=== PATIENT | female | born 1990 | race Caucasian/White ===

== ENCOUNTER 2024-07-02 01:16 | Emergency (ER) | payer OTHER, SELFPAY ==
--- NOTE | ~2024-07-02 | XR_ITS ---
EXAMINATION: XR CHEST CLINICAL INFORMATION: Cough, productive for 2 weeks. COMPARISON: None available. TECHNIQUE: 2 views of the chest were obtained. FINDINGS: No consolidation, pleural effusion or pneumothorax. Cardiomediastinal silhouette is normal in size. S-shaped curvature of the thoracic spine. Vascular clips in the right upper quadrant abdomen and likely prior cholecystectomy. XR/XR chest 2V IMPRESSION: No acute airspace disease. Probable scoliosis, thoracic spine. Electronically signed by: Eric Hairston MD 07/02/2024 09:00 AM KIN[facility]
[2024-07-02 01:20] VITALS: BP 134/91; PULSE 92; RESP 18; TEMP 36.6; O2SAT 95; BMI 24.4
[2024-07-02 01:41] LABS: IDNOW Serial# 08D9AD1C; Strep A Nucleic Acid Negative (Negative)
[2024-07-02 02:11] LABS: Influenza A PCR NEGATIVE (Negative); Influenza B PCR NEGATIVE (Negative); Resp Syncy Virus RNA Qual PCR NEGATIVE (Negative); SARS COV2 PCR INHOUSE NEGATIVE (Negative)
[2024-07-02 04:18] VITALS: BP 126/85; PULSE 82; RESP 18; O2SAT 98
--- NOTE | 2024-07-02 07:40 | ED_ITS ---
HPI - URI/Sore Throat General Chief Complaint: Upper Respiratory Symptoms Stated Complaint: Diff breathing Time Seen by Provider: 07/02/24 07:39 Source: patient Mode of arrival: ambulatory Limitations: no limitations History of Present Illness ED Provider: DIONNE RUSSO PA-C HPI Narrative: 34-year-old female with no significant past medical history presents to the emergency department today for evaluation of cough productive of green sputum x2 weeks. Triage note mentioned sore throat however on my interview, patient states that her throat is not sore. Rather, she feels as though the sputum is stuck and will not expel unless she coughs really hard. she has been taking mucinex at home without relief. Her daughter was recently ill with similar symptoms. She did not receive a specific diagnosis. Patient denies receiving her flu shot this year. Vaccines otherwise UTD. Denies fever, chills, chest pain, palpitations, sob, dyspnea. No recent travel or long car rides. Related Data Previous Rx's ?Medication ?Instructions ?Recorded azithromycin 250 mg tablet See Rx Instructions PO .COMPLEX #6 07/02/24 tabs benzonatate 100 mg capsule 100 mg PO BID PRN cough #20 caps 07/02/24 Allergies Allergy/AdvReac Type Severity Reaction Status Date / Time No Known Allergies Allergy Verified 07/02/24 01:22 Review of Systems Review of Systems: Constitutional: No fever, chills, fatigue, night sweats, weight changes ENT/Mouth: No ear pain, hearing loss, nasal congestion, sinus pain, rhinorrhea, sore throat Eyes: No eye pain, swelling, redness, vision changes, discharge Cardio: No chest pain, palpitations, STEWART, orthopnea, peripheral edema Pulm: No SOB, wheezing, dyspnea, hemoptysis, +cough +sputum production GI: No nausea, vomiting, hematemesis, abdominal pain, diarrhea, constipation, hematochezia, melena : No irregular bleeding, dysuria, frequency, urgency, hesitancy, hematuria, flank pain, urinary flow changes, urinary incontinence or retention MSK: No back pain, neck pain, joint pain, myalgias Skin: No lesions, rashes Neuro: No weakness, numbness, paresthesias, LOC, dizziness, headache Psych: No anxiety/panic, depression, SI/HI, AH/VH All other systems reviewed and are negative. [facility] Past Medical History Attestation statement: The following information was validated with the patient. Source: old records reviewed and nursing notes reviewed Social History Social History Advance Directives: Yes Advance Directives Information Provided: Yes Advance Directives on File: No Do you have a plan to hurt others: No Plan Physical Exam Vital Signs: Vital Signs: Last Vital Signs Temp 97.9 F 07/02/24 09:36 Pulse 80 07/02/24 09:36 Resp 16 07/02/24 09:36 BP 137/85 07/02/24 09:36 Pulse Ox 97 07/02/24 09:36 O2 Del Method Room Air 07/02/24 09:36 BMI result Body Mass Index 24.4 vss General: Well appearing, in no acute distress. Skin: Warm, dry, intact. No rashes or lesions. Head: Normocephalic, atraumatic. EENT: Hearing is intact b/l. Conjunctiva clear. PERRLA. EOM intact. Moist mucous membranes.?posterior oropharynx without erythema/ edema, no tonsilar exudates, uvula midline, controlling secretions and speaking in complete sentences Neck: Supple without LAD Cardiac: Chest wall symmetric. RRR. Lungs: Normal respiratory effort without accessory muscle use. CTA bilaterally. No rales, rhonchi, or wheezes.? Abdomen: Soft, non-tender, non-distended. No rebound tenderness or guarding Ext: Upper and lower extremities atraumatic, without tenderness, deformity, swelling or erythema. Full ROM throughout. Neuro: AOx3. Normal speech. Ambulating with steady gait. Psych: Appropriate mood and affect. Responds appropriately to questions. Course Course Course Narrative: 739 -- Patient tested negative for covid, flu, rsv, strep throat. cxr pending to r/o PNA. Dianasalon Jese given for cough. 914 -- CXR without evidence of pneumonia. given length of patient's symptomes, will treat for URI. agustin and marty sent to pharmacy. Patient has remained stable throughout ED visit today. Discussed worrisome signs and symptoms and when to return to the ED. All questions answered at this time. Patient is agreeable with disposition and stable for discharge. Medications Administered Discontinued Medications Generic Name Dose Route Start Last Admin Trade Name Freq PRN Reason Stop Dose Admin Benzonatate 200 mg 07/02/24 08:49 07/02/24 09:33 Benzonatate 100 Mg Capsule PO 07/02/24 08:50 200 mg ONCE ONE Administration Medical Decision Making Medical Decision Making [facility] Narrative: 34-year-old female with no significant past medical history presents to the emergency department today for evaluation of cough productive of green sputum x2 weeks. vital signs stable. afebrile. she is nontoxic appearing and in nad. no respiratory distress, no tripoding. lungs clear. posterior oropharynx wnl. Differential diagnosis includes viral syndrome, strep throat, pneumonia, bronchitis. 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 Plan for viral swabs, cxr, re-evaluation. Differential Diagnosis Differential Diagnoses: The differential diagnosis associated with the presentation includes as above Admission/Observation not indicated Lab Data [facility] Lab Attestation statement: I reviewed the patient's lab results. as above Labs: Lab Results 07/02/24 Range/Units 01:25 Influenza Type A (PCR) NEGATIVE (Negative) Influenza Type B (PCR) NEGATIVE (Negative) RSV RNA Qual (PCR) NEGATIVE (Negative) SARS-CoV-2 RNA (RT-PCR) NEGATIVE (Negative) S. pyogenes GrpA MARIELLA Negative (Negative) Independent Interpretation I performed an independent interpretation of an: Plain X-Ray Interpretation: cxr without infiltrate or consolidation Radiology Impression Discussion of test interpretation with radiology: I have reviewed the radiologist's reading. Radiologist Impression: EXAMINATION: XR CHEST CLINICAL INFORMATION: Cough, productive for 2 weeks. COMPARISON: None available. TECHNIQUE: 2 views of the chest were obtained. FINDINGS: No consolidation, pleural effusion or pneumothorax. Cardiomediastinal silhouette is normal in size. S-shaped curvature of the thoracic spine. Vascular clips in the right upper quadrant abdomen and likely prior cholecystectomy. XR/XR chest 2V IMPRESSION: No acute airspace disease. Probable scoliosis, thoracic spine. Electronically signed by: Eric Hairston MD 07/02/2024 09:00 AM EST Prescription Management I considered prescription management with: Antibiotic (zpak) and Other (tesselon) Social Determinants Patient?s care significantly limited by Social Determinants of Health including: Other Social Determinant of Health Critical Care Time Critical Care Time Critical Care Time: No Discharge Plan Discharge Clinical Impression: Upper respiratory infection Patient Disposition: Home, Self-Care Instructions: Upper Respiratory Infection (ED) Additional Instructions: You were evaluated in the ED today for cough. You tested negative for covid/ flu/ rsv/ strep throat. Your chest xray does not demonstrate pneumonia. You will be treated for an upper respiratory infection. Azithromycin is an antibiotic that has been sent to your pharmacy for treatment. Take this as prescribed over the next 5 days. Testeri Sawant have been sent to your pharmacy for cough. Follow up with your primary care provider as needed. Return with new or worsening symptoms. In the case of an emergency call 911. Prescriptions: New azithromycin 250 mg tablet See Rx Instructions .ROUTE .COMPLEX Qty: 6 0RF Rx Instructions: For 250 mg dose pack: take 500 mg today (day 1), then 250 mg for 4 days (days 2-5) benzonatate 100 mg capsule 100 mg PO BID PRN (Reason: cough) Qty: 20 0RF Stand Alone Forms: Work/School Release Interventions: ED Discharge Assessment Last Done: 07/02/24 09:36 Discharge Date/Time: 07/02/24 09:36 Print Language: Swedish
[2024-07-02 08:10] VITALS: BP 137/85; PULSE 80; RESP 16; TEMP 36.6; O2SAT 97
[2024-07-02] MEDS: Benzonatate 100 MG CAPSULE 200 MG PO (09:33)
[2024-07-02 09:36] VITALS: BP 137/85; PULSE 80; RESP 16; TEMP 36.6; O2SAT 97
== END 2024-07-02 09:36 | disposition home or self-care (01) ==
PROVIDERS: Emergency Provider Emergency Medicine; PCP Internal Medicine
DX: J06.9 Acute upper respiratory infection, unspecified (principal); R05.9 Cough, unspecified; Z03.818 Encounter for observation for suspected exposure to other biological agents ruled out
CPT/HCPCS: 0241U; 71046; 87651; 99283

== ENCOUNTER → 2024-07-02 07:46 | Outpatient (BNV) | payer SELFPAY | PROVIDERS: Emergency Provider Emergency Medicine; PCP Internal Medicine; Visit Provider Radiology Diagnostic Radiology | DX: R05.9 Cough, unspecified (principal) | CPT/HCPCS: 71046 ==